=== PATIENT | female | born 1945 | race Caucasian/White ===

== ENCOUNTER 2016-10-29 09:13 | Emergency (ER) | payer MEDICAID, MEDICARE, OTHER ==
[2016-10-29 09:39] VITALS: BMI 24.5
--- NOTE | 2016-10-29 09:45 | ED PDOC ---
HPI: General Adult Time Seen by Provider: 10/29/16 09:36 Chief Complaint (Nursing): Chest Pain Chief Complaint (Provider): shoulder pain History Per: Patient History/Exam Limitations: no limitations Additional Complaint(s): 71yo female with family member complains of right shoulder to right arm pain for 8 hours, which woke her from sleep. Tylenol provided relief. No heavy lifting. This happened before, and she was seen by PMD Reji who sent her from [facility]. Patient was told she has a tendon problem for which she is supposed to go to physical therapy, which she has started. Pain is worse when lifting the right arm. Past Medical History Reviewed: Historical Data, Nursing Documentation, Vital Signs - Medical History PMH: Diabetes, HTN, Hypercholesterolemia - Family History Family History: States: Unknown Family Hx - Immunization History Hx Tetanus Toxoid Vaccination: No Hx Influenza Vaccination: Yes Hx Pneumococcal Vaccination: No - Home Medications Home Medications: Ambulatory Orders Medication Instructions Recorded MetFORMIN [glucOPHAGE] 1,000 mg PO BID 07/11/16 Metoprolol Succinate 25 mg PO BID 07/11/16 Olmesartan/Hydrochlorothiazide 1 tab PO DAILY 07/11/16 [Benicar Hct 12.5 mg-20 mg] Patient Own Control 35 unit SC DAILY 07/11/16 Acetaminophen with Codeine 1 tab PO Q6H PRN #10 tab 10/29/16 [Tylenol with Codeine No. 3 300 mg-30 mg] Budesonide/Formoterol Fumarate 1 aer IH DAILY 10/29/16 [Symbicort] Levothyroxine [Synthroid] 25 mcg PO DAILY 10/29/16 - Allergies Allergies/Adverse Reactions: Allergies Allergy/AdvReac Type Severity Reaction Status Date / Time aspirin Allergy ITCHING Verified 07/11/16 13:12 Review of Systems ROS Statement: Except As Marked, All Systems Reviewed And Found Negative Musculoskeletal: Positive for: Shoulder Pain, Arm Pain Physical Exam - Reviewed Nursing Documentation Reviewed: Yes Vital Signs Reviewed: Yes - Physical Exam Appears: Positive for: Well, Non-toxic, No Acute Distress Head Exam: Positive for: ATRAUMATIC, NORMAL INSPECTION, NORMOCEPHALIC Skin: Positive for: Warm, Dry Eye Exam: Positive for: EOMI, PERRL Cardiovascular/Chest: Positive for: Regular Rate, Rhythm Respiratory: Positive for: Normal Breath Sounds. Negative for: Rales, Rhonchi, Wheezing Extremity: Positive for: Other (right superior / posterior shoulder tenderness) Neurologic/Psych: Positive for: Alert, Oriented Medical Decision Making Medical Decision Makin CT right upper extremity w/o ordered. 1310 CT Right Upper Extremity w/o IMPRESSION: 1. Joint effusion and low attenuation lesion at junction of the subscapularis and coracobrachialis muscles. Differential considerations include loculated effusion, ganglion cyst and intramuscular cyst. 2. Calcific tendinitis. Loss of subacromial fat plane suggest impingement and rotator cuff disease. Additional evaluation with MRI. 3. Right pulmonary nodules. Need complete CT evaluation of the chest if etiology not yet established. 1316 CT result printed for patient to discuss incidental findings with PMD. Disposition - Clinical Impression Clinical Impression: Calcific tendinitis - Disposition Referrals: Clau Howard MD [Staff Provider] - Condition: STABLE Prescriptions: Acetaminophen with Codeine [Tylenol with Codeine No. 3 300 mg-30 mg] 1 tab PO Q6H PRN #10 tab PRN Reason: Pain, Severe (8-10) Instructions: Calcific Tendinitis (ED) Print Language: KU[place]I Additional Comments - Additional Comments Additional Comments: Scribe Attestation: Documented by Samy Dennis acting as a scribe for Grace Pike MD. Provider Attestation: All medical record entries made by the Scribe were at my direction and personally dictated by me. I have reviewed the chart and agree that the record accurately reflects my personal performance of the history, physical exam, medical decision making, and the department course for this patient. I have also personally directed, reviewed, and agree with the discharge instructions and disposition.
--- NOTE | 2016-10-29 13:05 | CT ---
EXAM: CT Right Upper Extremity Without Intravenous Contrast, Shoulder CLINICAL HISTORY: 71 years old, female; Pain; Shoulder; Right; Additional info: R shoulder pain TECHNIQUE: Axial computed tomography images of the right shoulder without intravenous contrast. This CT exam was performed using one or more of the following dose reduction techniques: automated exposure control, adjustment of the mA and/or kV according to patient size, and/or use of iterative reconstruction technique. Coronal and sagittal reformatted images were created and reviewed. EXAM DATE/TIME: 10/29/2016 9:49 AM COMPARISON: No relevant prior studies available. FINDINGS: Bones/joints: Joint effusion. Loss of subacromial fat plane. Tiny calcifications at 8-9:00 to humerus. No acute fracture or dislocation. Mild degenerative changes of glenohumeral and AC joints. Soft tissues: Well defined low attenuation lesion between subscapularis and coracobrachialis/short head of biceps muscles. This measures 1.5 x 1.6 x 2.3 cm. Lungs: Noncalcified 8mm nodule right upper lobe. Additional 5 mm nodule on last image, incompletely imaged. IMPRESSION: 1. Joint effusion and low attenuation lesion at junction of the subscapularis and coracobrachialis muscles. Differential considerations include loculated effusion, ganglion cyst and intramuscular cyst. 2. Calcific tendinitis. Loss of subacromial fat plane suggest impingement and rotator cuff disease. Additional evaluation with MRI. 3. Right pulmonary nodules. Need complete CT evaluation of the chest if etiology not yet established.
[2016-10-29 14:16] VITALS: BP 120/78; PULSE 78; RESP 20; TEMP 97.6; O2SAT 98
--- NOTE | 2016-11-01 14:24 | CARD ---
APPROVED REPORT EKG Measurement Heart [id number] <Conclusion> Normal sinus rhythm Normal ECG
== END 2016-10-29 14:16 | disposition home or self-care (01) ==
LOC: H.ER 09:13
DX: R07.89 Other chest pain (principal)

== ENCOUNTER → 2017-11-06 | Day surgery (SDC) | payer MEDICARE, OTHER ==
[~2017-11-06] MED LIST: Lactated Ringer's 500 ML IV ONE; Propofol 10 mg/ml Inj (20 ML) ONE
[2017-11-06 11:02] VITALS: TEMP 97.5
[2017-11-06 11:11] VITALS: BP 113/55; PULSE 66; RESP 17; O2SAT 100
== END | disposition home or self-care (01) ==
LOC: H.ENDO 07:57
PROVIDERS: ATTEND Internal Medicine Gastroenterology
DX: Z12.11 Encounter for screening for malignant neoplasm of colon (principal); K64.8 Other hemorrhoids
CPT/HCPCS: 45378; J2704; J7120

== ENCOUNTER 2018-08-21 09:18 | Emergency (ER) | payer MEDICARE, OTHER ==
[2018-08-21 09:23] VITALS: BMI 27.3
[2018-08-21] MEDS ORDERED: Sodium Chloride 0.9% 1,000 ML IV STA (10:05)
[2018-08-21 10:32] LABS: BASO # 0.1 K/uL (0.0-0.2); BASO % 0.9 % (0.0-2.0); EOS # 0.1 K/uL (0.0-0.7); EOS % 1.5 % (0.0-4.0); HEMOGLOBIN 12.3 g/dL (12.0-16.0); LYMPH # 2.2 K/uL (1.0-4.3); LYMPH % 25.3 % (20.0-40.0); MEAN CELL VOLUME 86.8 fl (81.0-99.0); MEAN CORPUSCULAR HEMOGLOBIN 28.2 pg (27.0-31.0); MEAN CORPUSCULAR HGB CONC 32.5 g/dL (33.0-37.0); MEAN PLATELET VOLUME 8.9 fl (7.2-11.7); MONO # 0.7 K/uL (0.0-0.8); MONO % 7.7 % (0.0-10.0); NEUT # 5.5 K/uL (1.8-7.0); NEUT % 64.6 % (50.0-75.0); RBC 4.36 Mil/uL (3.80-5.20); RED CELL DISTRIBUTION WIDTH 14.8 % (11.5-14.5); WHITE BLOOD COUNT 8.5 K/uL (4.8-10.8)
[2018-08-21 10:40] LABS: ALB/GLOB RATIO 1.1 (1.0-2.1); ALBUMIN 4.2 g/dL (3.5-5.0); ALT/SGPT 20 U/L (9-52); AST/SGOT 30 U/L (14-36); BLOOD UREA NITROGEN 16 mg/dl (7-17); CALCIUM 9.3 mg/dL (8.4-10.2); GFR NON-AFRICAN AMERICAN > 60; LIPASE 68 U/L (23-300)
[2018-08-21 10:42] LABS: SQUAMOUS EPITHIAL 4 /hpf (0-5); URINE BILIRUBIN NEGATIVE (NEGATIVE); URINE BLOOD SMALL (NEGATIVE); URINE CLARITY CLEAR (Clear); URINE COLOR COLORLESS (YELLOW); URINE GLUCOSE (UA) NEG (NEGATIVE); URINE LEUKOCYTE ESTERASE TRACE Leu/uL (Negative); URINE PROTEIN NEGATIVE (NEGATIVE); URINE UROBILINOGEN 0.2-1.0 mg/dL (0.2-1.0)
--- NOTE | 2018-08-21 10:49 | ED PDOC ---
HPI: Back Time Seen by Provider: 08/21/18 09:52 Chief Complaint (Nursing): Back Pain Chief Complaint (Provider): Back Pain History Per: Patient History/Exam Limitations: no limitations Onset/Duration Of Symptoms: Days (1) Current Symptoms Are (Timing): Constant Quality Of Discomfort: "Pain" Exacerbating Factor(s): Movement Additional Complaint(s): 72 year old female with a history of HTN, diabetes and cholesterol presents to the ED for an evaluation of right lower back pain that radiates to the right lower quadrant since last night. Patient states the pain is constant that worsens with movement. She takes Naproxen for relief. The patient suffers from back pain sometimes but it is not chronic. Otherwise, she denies fever, vomiting or diarrhea. PMD: Nell Rodrigues Past Medical History Reviewed: Historical Data, Nursing Documentation, Vital Signs Vital Signs: Last Vital Signs Temp 97.8 F 08/21/18 09:23 Pulse 68 08/21/18 09:23 Resp 17 08/21/18 09:23 BP 186/75 H 08/21/18 09:23 Pulse Ox 99 08/21/18 09:23 - Medical History PMH: Diabetes, HTN, Hypercholesterolemia - Surgical History Other surgeries: left knee surgery (2x) - Family History Family History: States: Unknown Family Hx - Immunization History Hx Tetanus Toxoid Vaccination: No Hx Influenza Vaccination: Yes Hx Pneumococcal Vaccination: No - Home Medications Home Medications: Ambulatory Orders Medication Instructions Recorded MetFORMIN [glucOPHAGE] 1,000 mg PO BID 07/11/16 Metoprolol Succinate 25 mg PO BID 07/11/16 Levothyroxine [Synthroid] 25 mcg PO DAILY 10/29/16 Cyclobenzaprine [Cyclobenzaprine 10 mg PO TID #15 tab 08/21/18 HCl] Naproxen 500 mg PO BID #20 tab 08/21/18 - Allergies Allergies/Adverse Reactions: Allergies Allergy/AdvReac Type Severity Reaction Status Date / Time aspirin Allergy Mild ITCHING Verified 11/06/17 09:21 Review of Systems ROS Statement: Except As Marked, All Systems Reviewed And Found Negative Constitutional: Negative for: Fever Gastrointestinal: Positive for: Abdominal Pain (RLQ). Negative for: Vomiting, Diarrhea Musculoskeletal: Positive for: Back Pain (right lower) Physical Exam - Reviewed Nursing Documentation Reviewed: Yes Vital Signs Reviewed: Yes - Physical Exam Appears: Positive for: Non-toxic, No Acute Distress Head Exam: Positive for: ATRAUMATIC, NORMAL INSPECTION, NORMOCEPHALIC Skin: Positive for: Normal Color, Warm, DRY Eye Exam: Positive for: EOMI, Normal appearance, PERRL ENT: Positive for: Normal ENT Inspection Neck: Positive for: Normal, Painless ROM Cardiovascular/Chest: Positive for: Regular Rate, Rhythm Respiratory: Positive for: CNT, Normal Breath Sounds Gastrointestinal/Abdominal: Positive for: Soft, Tenderness (RLQ) Back: Positive for: Vertebral Tenderness, Other (right flank tenderenss, right lower back tenderness). Negative for: L CVA Tenderness, R CVA Tenderness Extremity: Positive for: Normal ROM, Other (straight leg test normal ). Negative for: Tenderness, Pedal Edema, Deformity Neurological/Psych: Positive for: Awake, Alert, Normal Tone, Oriented (x3) - Laboratory Results Result Diagrams: 08/21/18 10:20 08/21/18 10:20 Lab Results: Total Bilirubin 0.4 mg/dl (0.2-1.3) 08/21/18 10:20 AST 30 U/L (14-36) 08/21/18 10:20 ALT 20 U/L (9-52) 08/21/18 10:20 Alkaline Phosphatase 84 U/L (38-126) 08/21/18 10:20 Total Protein 7.9 G/DL (6.3-8.2) 08/21/18 10:20 Albumin 4.2 g/dL (3.5-5.0) 08/21/18 10:20 Globulin 3.8 gm/dL (2.2-3.9) 08/21/18 10:20 Albumin/Globulin Ratio 1.1 (1.0-2.1) 08/21/18 10:20 Lipase 68 U/L (23-300) 08/21/18 10:20 Urine Color Colorless (YELLOW) 08/21/18 10:20 Urine Clarity Clear (Clear) 08/21/18 10:20 Urine pH 6.0 (5.0-8.0) 08/21/18 10:20 Ur Specific [place] 1.005 (1.003-1.030) 08/21/18 10:20 Urine Protein Negative mg/dL (NEGATIVE) 08/21/18 10:20 Urine Glucose (UA) Neg mg/dL (NEGATIVE) 08/21/18 10:20 Urine Ketones Negative mg/dL (NEGATIVE) 08/21/18 10:20 Urine Blood Small (NEGATIVE) 08/21/18 10:20 Urine Nitrate Negative (NEGATIVE) 08/21/18 10:20 Urine Bilirubin Negative (NEGATIVE) 08/21/18 10:20 Urine Urobilinogen 0.2-1.0 mg/dL (0.2-1.0) 08/21/18 10:20 Ur Leukocyte Esterase Trace Joss/uL (Negative) 08/21/18 10:20 Urine RBC (Auto) 3 /hpf (0-3) 08/21/18 10:20 Urine Microscopic WBC 2 /hpf (0-5) 08/21/18 10:20 Ur Squamous Epith Cells 4 /hpf (0-5) 08/21/18 10:20 - ECG O2 Sat by Pulse Oximetry: 99 (RA) Pulse Ox Interpretation: Normal - Progress Re-evaluation Time: 12:33 Condition: Re-examined, Improved Medical Decision Making Medical Decision Making: Time: 1004 Impression: abdominal pain and flank pain Differential Diagnosis: nephrolithiasis, appendicitis, lumbar radiculopathy, musculoskeletal pain Plan: Abdomen & Pelvis IV contrast only CMP Lipase ED urine dipstick CBC w/ differential Glucose, POC Morphine 2mg Normal Saline 1000 mls/hr Urinalysis Reevaluation 1119 PROCEDURE: CT Abdomen and Pelvis with contrast HISTORY: RLQ pain right flank pain COMPARISON: Abdomen pelvis CT with contrast 04/18/2014. TECHNIQUE: Following the intravenous administration of iodinated contrast material, a CT examination of the abdomen and pelvis was performed from the domes of the diaph ragms to the symphysis pubis with reformatted datasets provided in axial, sagittal and coronal planes. Oral contrast was not administered as per referring physician request. Contrast dose: Omnipaque 300, 95 cc Radiation dose: Total exam DLP = 565.14 mGy-cm. This CT exam was performed using one or more of the following dose reduction techniques: Automated exposure control, adjustment of the mA and/or kV according to patient size, and/or use of iterative reconstruction technique. FINDINGS: LOWER THORAX: Mild cardiomegaly is noted. There is a small hiatal hernia. Limited bibasilar dependent ground-glass opacities appreciated. There is an irregular nodule identified at the right lower lobe in image 4 series 3 measuring 1.3 x 1.1 cm unchanged in size compared to 04/18/2014 CT likely representing a benign nodule. LIVER: Unremarkable. No gross lesion or ductal dilatation. GALLBLADDER AND BILE DUCTS: Unremarkable. PANCREAS: Unremarkable. No gross lesion or ductal dilatation. SPLEEN: Unremarkable. ADRENALS: Unremarkable. No mass. KIDNEYS AND URETERS: No obstructive uropathy or solid parenchymal mass. A simple cyst is slightly larger in size at the midpole right kidney posteriorly, measuring 2.2 cm currently compared 1.7 cm previously. There a few tiny parenchymal lucency seen in both kidneys which are too small to characterize. VASCULATURE: Nonaneurysmal abdominal aortic calcific atherosclerotic changes are identified. BOWEL: Moderately prominent fecal loading is seen at the proximal large bowel. No bowel obstruction. No definitive gross mural thickening. APPENDIX: Normal appendix. PERITONEUM: Unremarkable. No free fluid. No free air. LYMPH NODES: Unremarkable. No enlarged lymph nodes. BLADDER: Distended but thin and smooth walled urinary bladder. No radiodense urolithiasis or perinephric reactive changes associated. REPRODUCTIVE: Unremarkable. BONES: Stable minimal grade 1 spondylolisthesis L4 anterior to L5, degenerative. No spondylolysis. OTHER FINDINGS: None. IMPRESSION: 1. Normal appendix. No suspicious findings in the right lower quadrant abdomen. 2. Moderately prominent fecal loading at right hemicolon with limited volume otherwise throughout the remainder. No bowel obstruction, measure edema, ascites or free intra peritoneal gas collection. 3. Mild increase in size in a midpole right renal cyst. No obstructive uropathy bilaterally. Additional tiny lucencies seen in both kidneys under 1 cm size too small to characterize. Rare punctate infrequent radiodense calculi not excluded the bilateral kidneys, nonobstructive. 4. Other lesser abdominal findings as per above. 5. Incidental small benign mass 1.3 cm right lower lobe unchanged in size compared 04/18/2014. Scribe Attestation: Documented by Jonatan Sebastian, acting as a scribe for Mary Montaño MD Provider Scribe Attestation: All medical record entries made by the Scribe were at my direction and personally dictated by me. I have reviewed the chart and agree that the record accurately reflects my personal performance of the history, physical exam, medical decision making, and the department course for this patient. I have also personally directed, reviewed, and agree with the discharge instructions and disposition. Disposition - Clinical Impression Clinical Impression: Back pain, Pulmonary nodule, Renal cyst - Patient ED Disposition Is Patient to be Admitted: No Doctor Will See Patient In The: Office Counseled Patient/Family Regarding: Studies Performed, Diagnosis, Need For Followup - Disposition Referrals: Nell Mendoza MD [Medical Doctor] - Disposition: Routine/Home Disposition Time: 12:34 Condition: IMPROVED Additional Instructions: PORFIRIO CARRANZA, thank you for letting us take care of you today. Your provider was Mary Montaño MD and you were treated for LOWER BACK PAIN. The emergency medical care you received today was directed at your acute symptoms. If you were prescribed any medication, please fill it and take as directed. It may take several days for your symptoms to resolve. Return to the Emergency Department if your symptoms worsen, do not improve, or if you have any other problems. Please contact your doctor or call one of the physicians/clinics you have been referred to that are listed on the Patient Visit Information form that is included in your discharge packet. Bring any paperwork you were given at discharge with you along with any medications you are taking to your follow up visit. Our treatment cannot replace ongoing medical care by a primary care provider outside of the emergency department. Thank you for allowing the [facility] team to be part of your care today. Prescriptions: Cyclobenzaprine [Cyclobenzaprine HCl] 10 mg PO TID #15 tab Naproxen 500 mg PO BID #20 tab Instructions: Pulmonary Nodule, Flank Pain
[2018-08-21] MEDS ORDERED: Iohexol 300 100 ML IJ ONE (11:00)
[2018-08-21] MEDS ORDERED: Sodium Chloride 0.9% 50 ML IV ONE (11:01)
--- NOTE | 2018-08-21 11:28 | CT ---
Date of service: 08/21/2018 PROCEDURE: CT Abdomen and Pelvis with contrast HISTORY: RLQ pain right flank pain COMPARISON: Abdomen pelvis CT with contrast 04/18/2014. TECHNIQUE: Following the intravenous administration of iodinated contrast material, a CT examination of the abdomen and pelvis was performed from the domes of the diaphragms to the symphysis pubis with reformatted datasets provided in axial, sagittal and coronal planes. Oral contrast was not administered as per referring physician request. Contrast dose: Omnipaque 300, 95 cc Radiation dose: Total exam DLP = 565.14 mGy-cm. This CT exam was performed using one or more of the following dose reduction techniques: Automated exposure control, adjustment of the mA and/or kV according to patient size, and/or use of iterative reconstruction technique. FINDINGS: LOWER THORAX: Mild cardiomegaly is noted. There is a small hiatal hernia. Limited bibasilar dependent ground-glass opacities appreciated. There is an irregular nodule identified at the right lower lobe in image 4 series 3 measuring 1.3 x 1.1 cm unchanged in size compared to 04/18/2014 CT likely representing a benign nodule. LIVER: Unremarkable. No gross lesion or ductal dilatation. GALLBLADDER AND BILE DUCTS: Unremarkable. PANCREAS: Unremarkable. No gross lesion or ductal dilatation. SPLEEN: Unremarkable. ADRENALS: Unremarkable. No mass. KIDNEYS AND URETERS: No obstructive uropathy or solid parenchymal mass. A simple cyst is slightly larger in size at the midpole right kidney posteriorly, measuring 2.2 cm currently compared 1.7 cm previously. There a few tiny parenchymal lucency seen in both kidneys which are too small to characterize. VASCULATURE: Nonaneurysmal abdominal aortic calcific atherosclerotic changes are identified. BOWEL: Moderately prominent fecal loading is seen at the proximal large bowel. No bowel obstruction. No definitive gross mural thickening. APPENDIX: Normal appendix. PERITONEUM: Unremarkable. No free fluid. No free air. LYMPH NODES: Unremarkable. No enlarged lymph nodes. BLADDER: Distended but thin and smooth walled urinary bladder. No radiodense urolithiasis or perinephric reactive changes associated. REPRODUCTIVE: Unremarkable. BONES: Stable minimal grade 1 spondylolisthesis L4 anterior to L5, degenerative. No spondylolysis. OTHER FINDINGS: None. IMPRESSION: 1. Normal appendix. No suspicious findings in the right lower quadrant abdomen. 2. Moderately prominent fecal loading at right hemicolon with limited volume otherwise throughout the remainder. No bowel obstruction, measure edema, ascites or free intra peritoneal gas collection. 3. Mild increase in size in a midpole right renal cyst. No obstructive uropathy bilaterally. Additional tiny lucencies seen in both kidneys under 1 cm size too small to characterize. Rare punctate infrequent radiodense calculi not excluded the bilateral kidneys, nonobstructive. 4. Other lesser abdominal findings as per above. 5. Incidental small benign mass 1.3 cm right lower lobe unchanged in size compared 04/18/2014.
[2018-08-21 12:45] VITALS: BP 141/60; PULSE 71; RESP 18; TEMP 98.1; O2SAT 100
== END 2018-08-21 12:45 | disposition home or self-care (01) ==
LOC: H.ER 09:18
DX: M54.5 Low back pain (principal); R91.1 Solitary pulmonary nodule; N28.1 Cyst of kidney, acquired; I10 Essential (primary) hypertension; E11.9 Type 2 diabetes mellitus without complications; Z79.84 Long term (current) use of oral hypoglycemic drugs
CPT/HCPCS: 74177; 80053; 81003; 82948; 83690; 85025; 96361; 96374; 99284; J2270; J7030; Q9967